=== PATIENT | female | born 1945 | race Caucasian/White ===

== ENCOUNTER 2017-10-09 12:10 | Outpatient (CLI) | payer OTHER | END 2017-10-09 23:59 | disposition home or self-care (01) | LOC: RAD 12:10 | PROVIDERS: ATTEND Orthopaedic Surgery | DX: Z01.818 Encounter for other preprocedural examination (principal); I51.7 Cardiomegaly; M19.111 Post-traumatic osteoarthritis, right shoulder; Z98.890 Other specified postprocedural states | CPT/HCPCS: 71046 ==

== ENCOUNTER 2023-11-25 09:56 | Emergency (ER) | payer MEDICARE, OTHER ==
[~2023-11-25] VITALS: Ht 157.5 cm; Wt 67.1 kg
[2023-11-25 13:36] LABS: EOSINOPHILS % (AUTO) 0.3 % (0-6); MEAN PLATELET VOLUME 7.6 FL (7.4-10.4)
[2023-11-25 13:39] LABS: BASOPHILS % (AUTO) 0.5 % (0-1); HEMATOCRIT 36.9 % (35.0-45.0); HEMOGLOBIN 12.4 g/dl (12.0-16.0); LYMPHOCYTES # (AUTO) 0.9 X10'3 (1.1-4.8); LYMPHOCYTES % (AUTO) 18.1 % (21-51); MEAN CORPUSCULAR HEMOGLOBIN 30.8 PG (27.0-31.0); MEAN CORPUSCULAR HGB CONC 33.6 g/dL (33.0-36.5); MEAN CORPUSCULAR VOLUME 91.7 FL (78-98); MONOCYTES # (AUTO) 0.4 X10'3 (0-0.9); MONOCYTES % (AUTO) 8.7 % (2-12); NEUTROPHILS # (AUTO) 3.5 X10'3 (1.8-7.7); NEUTROPHILS % (AUTO) 72.4 % (42-75); PLATELET COUNT 195 X10'3 (140-440); RED BLOOD COUNT 4.02 X10'6 (4.20-5.60); WHITE BLOOD COUNT 4.8 X10'3 (4.5-11.0)
[2023-11-25] MEDS ORDERED: HYDR-3965 PO (13:44)
[2023-11-25 13:55] VITALS: BP 110/72; PULSE 62; RESP 14; TEMP 98.6; O2SAT 100
== END 2023-11-25 13:58 | disposition home or self-care (01) ==
LOC: ER 09:56
DX: S20.212A Contusion of left front wall of thorax, initial encounter (principal); W01.0XXA Fall on same level from slipping, tripping and stumbling without subsequent striking against object, initial encounter; Y93.89 Activity, other specified; Y92.89 Other specified places as the place of occurrence of the external cause; Y99.8 Other external cause status
CPT/HCPCS: 36415; 71101; 85025; 99284